=== PATIENT | female | born 1975 | race Hispanic/Latino ===

== ENCOUNTER 2018-10-23 20:50 | Inpatient (IN) | payer OTHER ==
[2018-10-23] MEDS ORDERED: Sodium Chloride 0.9% 1,000 ML IV STA (21:30)
[2018-10-23] MEDS ORDERED: Morphine 2 mg/ml ISec IVP STA (21:32)
[2018-10-23 22:04] LABS: BASO # 0.02 K/mm3 (0.0-2.0); BASO % 0.2 % (0.0-3.0); EOS # 0.2 (0.0-0.7); EOS % 1.4 % (1.5-5.0); HEMOGLOBIN 13.4 g/dL (12.0-16.0); LYMPH # 2.5 (1.2-3.4); LYMPH % 22.4 % (22.0-35.0); MEAN CELL VOLUME 91.7 fl (80.0-105.0); MEAN CORPUSCULAR HEMOGLOBIN 30.9 pg (25.0-35.0); MEAN CORPUSCULAR HGB CONC 33.7 g/dl (31.0-37.0); MEAN PLATELET VOLUME 11.7 fl (7.0-11.0); MONO # 0.7 (0.1-0.6); MONO % 6.2 % (1.0-6.0); RBC 4.34 10^6/uL (3.5-6.1); RED CELL DISTRIBUTION WIDTH 12.4 % (11.5-14.5); WHITE BLOOD COUNT 10.9 10^3/uL (4.5-11.0)
[2018-10-23 22:08] LABS: ALB/GLOB RATIO 1.5 (1.1-1.8); ALBUMIN 4.2 g/dL (3.0-4.8); ALT/SGPT 8 U/L (7-56); AST/SGOT 16 U/L (14-36); BLOOD UREA NITROGEN 7 mg/dL (7-21); CALCIUM 8.9 mg/dL (8.4-10.5); GFR NON-AFRICAN AMERICAN > 60
[2018-10-23 22:09] LABS: INR 1.17; PARTIAL THROMBOPLASTIN TIME 29.8 Seconds (26.9-38.3)
[2018-10-23] MEDS ORDERED: Iohexol 350 MG/100 ML VIAL ONE (22:31)
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
[2018-10-24] MEDS ORDERED: Morphine 2 mg/ml ISec IVP STA (01:57)
[2018-10-24] MEDS ORDERED: Morphine 2 mg/ml ISec ONE (02:02)
[2018-10-24] MEDS: Morphine 2 mg/ml ISec IVP PRN ×2 (03:11→06:53)
[2018-10-24] MEDS ORDERED: Bupivacaine 0.5% 50 ML IJ ONE (08:27)
[2018-10-24] MEDS ORDERED: Midazolam 2 MG/2 ML VIAL ONE (09:34)
[2018-10-24] MEDS ORDERED: Propofol 10 mg/ml Inj (20 ML) ONE (09:34)
[2018-10-24] MEDS ORDERED: Succinylcholine 200 mg/10 ml Inj IV ONE (09:35)
[2018-10-24] MEDS ORDERED: Rocuronium 10 mg/ml (5 ml) ONE (09:35)
--- NOTE | 2018-10-24 10:05 | CARD ---
APPROVED REPORT Date of service: 10/24/2018 EKG Measurement Heart [id number] <Conclusion> Normal sinus rhythm Normal ECG
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
--- NOTE | 2018-10-24 10:27 | CT ---
Date of service: 10/24/2018 PROCEDURE: Right lower extremity CT. HISTORY: right ankle fracture/ per dr. szymanski request COMPARISON: 2018. Right ankle radiographs. TECHNIQUE: 2.5 mm axial acquisition and display. Coronal and sagittal reconstructions. Dose report (mGy-cm): 358.15 FINDINGS: Bimalleolar fracture subluxation. Comminuted fracture of the distal fibula. Anatomically, this is 1 cm above the ankle mortise. The major fracture fragments display lateral angulation of the distal fragment. There is a component of comminution. Comminuted fracture distal tibia with avulsion of the medial malleolar component. Soft tissue swelling attests to the acuity of the fracture. IMPRESSION: Fracture dislocation/subluxation. This consists of tibial plafond fracture with avulsion of the medial malleolus. Comminuted fracture with angulation of the distal fibula. Soft tissue swelling attests to the acuity of the fracture. Concordant results (preliminary interpretation) provided by [facility]. Procedure Completed: 00:05. Preliminary Report: Dictated and Authenticated: 01:44. Final Interpretation: 10:23. 2018
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
[2018-10-24] MEDS ORDERED: Glycopyrrolate 0.2 mg/ml (2ml vial) ONE (11:09)
[2018-10-24] MEDS ORDERED: Neostigmine Methylsulfate 3mg/3ml Syringe IV ONE (11:09)
[2018-10-24] MEDS ORDERED: Vancomycin 1 g Inj ONE (12:39)
[2018-10-24] MEDS ORDERED: HYDROmorphone 0.5 mg/0.5 ml ISec IVP PRN (13:29)
[2018-10-24] MEDS ORDERED: Lactated Ringer's 1,000 ML IV SCH (13:30)
--- NOTE | 2018-10-24 13:59 | RAD ---
Date of service: 10/23/2018 PROCEDURE: Right Ankle Radiographs. HISTORY: ankle deformity COMPARISON: 2018. Left ankle. FINDINGS: BONES: Redemonstration fracture dislocation left ankle including comminuted distal fibular fracture and medial malleolar fracture. JOINTS: Fracture dislocation. SOFT TISSUES: Soft tissue swelling attests to the acuity of the fracture. OTHER FINDINGS: None. IMPRESSION: Acute fractures distal tibia and fibula.
[2018-10-24] MEDS ORDERED: ceFAZolin 1 gm in NS 1 GM/100 ML BAG IVPB SCH (14:00)
--- NOTE | 2018-10-24 14:00 | RAD ---
Date of service: 10/23/2018 PROCEDURE: Right Ankle Radiographs. HISTORY: post reduction COMPARISON: Pre reduction radiographs. 2018. FINDINGS: BONES: Redemonstration of distal tibial and fibular fractures. Improved anatomic alignment of major fracture fragments. JOINTS: Persistent subluxation left ankle SOFT TISSUES: Normal. OTHER FINDINGS: None. IMPRESSION: Improved anatomic alignment following close reduction of distal tibial and fibular fractures.
[2018-10-24] MEDS ORDERED: HYDROmorphone 0.5 mg/0.5 ml ISec ONE (14:23)
--- NOTE | 2018-10-24 14:44 | RAD ---
Date of service: 10/24/2018 PROCEDURE: Right Ankle Radiographs. HISTORY: Open reduction internal fixation right ankle fracture COMPARISON: None available. FINDINGS: BONES: Satisfactory alignment of major fracture fragments following open reduction No evidence of orthopedic hardware failure. JOINTS: Limitations of the current study: Detail obscured by overlying fiberglass cast. SOFT TISSUES: Normal. OTHER FINDINGS: None. IMPRESSION: Satisfactory postoperative status.
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
[2018-10-24 19:55] VITALS: BMI 28.0
[2018-10-24] MEDS ORDERED: Pneumococcal 23-Valent Vaccine IM ONE (19:55)
[2018-10-24] MEDS ORDERED: Influenza Vaccine 60 mcg/0.5 mL SYR (4YR UP) IM ONE (19:55)
[2018-10-24] MEDS: ceFAZolin 1 gm in NS 1 GM/100 ML BAG IVPB SCH (21:29)
[2018-10-24 21:32] VITALS: RESP 18; TEMP 97.9
[2018-10-24] MEDS: HYDROmorphone 1 mg/ml ISec IVP PRN (22:16)
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
[2018-10-25] MEDS: ceFAZolin 1 gm in NS 1 GM/100 ML BAG IVPB SCH (03:18)
[2018-10-25 08:22] VITALS: BP 102/47; PULSE 75; O2SAT 97
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
[2018-10-25] MEDS: HYDROmorphone 1 mg/ml ISec IVP PRN (10:30)
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
--- NOTE | 2018-10-25 20:53 | RAD ---
Date of service: 10/24/2018 PROCEDURE: Fluoroscopy up to 1 hr HISTORY: Right ankle fracture COMPARISON: TECHNIQUE: Fluoroscopy was provided in the operating room. 58.9 sec of fluoro time. 2.25 mGy cumulative dose. Nine images submitted. FINDINGS: The study shows internal fixation of a bimalleolar fracture. There are no complicating factors IMPRESSION: As above
== END 2018-10-25 14:53 | disposition home or self-care (01) | DRG 494 ==
LOC: ED 20:50 → ERH 10-24 01:57 → 5RNO 10-24 17:56
PROVIDERS: ADMIT Internal Medicine; ATTEND Internal Medicine
PROC: 0QSG04Z Reposition Right Tibia with Internal Fixation Device, Open Approach (ICD-10-PCS; 2018-10-24)
PROC: 0QSJ04Z Reposition Right Fibula with Internal Fixation Device, Open Approach (ICD-10-PCS; principal; 2018-10-24 08:00)
DX: S82.841A Displaced bimalleolar fracture of right lower leg, initial encounter for closed fracture (principal); S20.219A Contusion of unspecified front wall of thorax, initial encounter; Y93.01 Activity, walking, marching and hiking; V03.90XA Pedestrian on foot injured in collision with car, pick-up truck or van, unspecified whether traffic or nontraffic accident, initial encounter; Y92.414 Local residential or business street as the place of occurrence of the external cause; Z87.891 Personal history of nicotine dependence